=== PATIENT | male | born 1960 ===

== ENCOUNTER 2020-05-01 06:35 | Day surgery (SDC) | payer OTHER ==
[~2020-05-01 06:35] MED LIST: Lactated Ringers 1,000 ML IV SCH
[2020-05-01] MEDS ORDERED: Ondansetron 4 MG/2 ML SDV ONE (07:11)
[2020-05-01] MEDS ORDERED: fentaNYL 100 MCG/2 ML SDV ONE (07:12)
[2020-05-01] MEDS ORDERED: Propofol 200 MG/20 ML SDV ONE (07:12)
[2020-05-01] MEDS ORDERED: Midazolam 1 MG/ML 2 ML SDV ONE (07:12)
--- NOTE | 2020-05-01 07:14 | PCM.PREANE ---
Preanesthetic Assessment - Anesthesia/Transfusion/Family Hx Anesthesia History: No Prior Anesthesia Family History of Anesthesia Reaction: No Transfusion History: No Prior Transfusion(s) Intubation History: Unknown - Review of Systems General: No Symptoms Pulmonary: No Symptoms Cardiovascular: No Symptoms Gastrointestinal: Hematochezia, Other (hemorrhoides, screening colonoscopy) Neurological: No Symptoms Other: Reports: None - Physical Assessment Height: 5 ft 8 in Weight: 84.368 kg ASA Class: 2 Mental Status: Alert & Oriented x3 Airway Class: Mallampati = 1 Dentition: Reports: Broken Tooth/Teeth (x3 on the back) Thyro-Mental Finger Breadths: 3 Mouth Opening Finger Breadths: 3 ROM/Head Extension: Full Lungs: Clear to Auscultation, Normal Respiratory Effort Cardiovascular: Regular Rate, Regular Rhythm - Allergies Allergies/Adverse Reactions: Allergies Allergy/AdvReac Type Severity Reaction Status Date / Time Penicillins Allergy Cannot Verified 04/29/20 08:22 Remember - Blood Blood Available: No - Anesthesia Plan Pre-Op Medication Ordered: None - Acknowledgements Anesthesia Type Planned: MAC Pt an Appropriate Candidate for the Planned Anesthesia: Yes Alternatives and Risks of Anesthesia Discussed w Pt/Guardian: Yes Pt/Guardian Understands and Agrees with Anesthesia Plan: Yes PreAnesthesia Questionnaire HEENT History: Reports: Other (See Below) Other HEENT History: wears glasses Cardiovascular History: Reports: Hypertension Respiratory History: Reports: None Gastrointestinal History: Reports: Other (See Below) Other Gastrointestinal History: Gilbert's syndrome Genitourinary History: Reports: None Musculoskeletal History: Reports: Arthritis, Fracture Other Musculoskeletal History: hx fx hand playing football Neurological History: Reports: Concussion, Migraines (last one more than a year ago) Psychiatric History: Reports: PTSD, Other (See Below) Other Psychiatric History: PTSD "not medically diagnosed" Endocrine/Metabolic History: Reports: None Hematologic History: Reports: None Immunologic History: Reports: None Oncologic (Cancer) History: Reports: None Dermatologic History: Reports: None - Past Surgical History Head Surgeries/Procedures: Reports: None HEENT Surgical History: Reports: None Cardiovascular Surgical History: Reports: None Respiratory Surgical History: Reports: None GI Surgical History: Reports: None Male Surgical History: Reports: None Endocrine Surgical History: Reports: None Neurological Surgical History: Reports: None Musculoskeletal Surgical History: Reports: None Oncologic Surgical History: Reports: None Dermatological Surgical History: Reports: None - SUBSTANCE USE Tobacco Use Within Last Twelve Months: Other (See Below) (quit 9 months ago) Days Per Week of Alcohol Use: 7 Number of Drinks Per Day: 1 Total Drinks Per Week: 7 - HOME MEDS Home Medications: Home Meds Cholecalciferol (Vitamin D3) [Vitamin D3] 3 tab PO DAILY 04/29/20 [History] Krill/Om-3/DHA/EPA/Phospho/Ast [Krill Oil 1,000 mg Softgel] 1 tab PO DAILY 04/29/20 [History] Losartan/Hydrochlorothiazide [Losartan-HCTZ 50-12.5 MG] 1 tab PO DAILY 04/29/20 [History] - CURRENT (IN HOUSE) MEDS Current Meds: Current Medications Lactated Ringer's (Ringers, Lactated) 1,000 mls @ 125 mls/hr IV ASDIRECTED TERESA
--- NOTE | 2020-05-01 08:18 | PCM.OPNOTE ---
- General Post-Op/Procedure Note Date of Surgery/Procedure: 05/01/20 Operative Procedure(s): Colonoscopy Pre Op Diagnosis: Desire for colorectal cancer screening Post-Op Diagnosis: Sigmoid diverticulosis Anesthesia Technique: MAC (ASA II) Primary Surgeon: Chuck Sanchez Condition: Good Free Text/Narrative:: DICTATION [id number] CPT CODE 21388
[2020-05-01] MEDS ORDERED: Lactated Ringers 1,000 ML IV SCH (08:30)
--- NOTE | 2020-05-01 08:44 | PCM.POSTAN ---
POST ANESTHESIA ASSESSMENT - MENTAL STATUS Mental Status: Alert, Oriented - VITAL SIGNS Vital Signs: Last Vital Signs Temp 35.9 C L 05/01/20 07:13 Pulse 51 L 05/01/20 08:30 Resp 11 L 05/01/20 08:30 BP 97/58 L 05/01/20 08:30 Pulse Ox 95 05/01/20 08:30 - RESPIRATORY Respiratory Status: Respiratory Rate WNL, Airway Patent, O2 Saturation Stable - CARDIOVASCULAR CV Status: Pulse Rate WNL, Blood Pressure Stable - GASTROINTESTINAL GI Status: No Symptoms - PAIN Pain Score: 0 - POST OP HYDRATION Hydration Status: Adequate & Stable - OBSERVATIONS Free Text/Narrative:: No anesthesia problems
--- NOTE | 2020-05-01 08:55 | PCM48HPAN ---
Post Anesthesia Note - EVALUATION WITHIN 48HRS OF ANESTHETIC Vital Signs in Normal Range: Yes Patient Participated in Evaluation: Yes Respiratory Function Stable: Yes Airway Patent: Yes Cardiovascular Function Stable: Yes Hydration Status Stable: Yes Pain Control Satisfactory: Yes Nausea and Vomiting Control Satisfactory: Yes Mental Status Recovered: Yes Vital Signs: Last Vital Signs Temp 35.9 C L 05/01/20 07:13 Pulse 51 L 05/01/20 08:30 Resp 11 L 05/01/20 08:30 BP 97/58 L 05/01/20 08:30 Pulse Ox 95 05/01/20 08:30 - COMMENTS/OBSERVATIONS Free Text/Narrative:: No anesthesia problems
--- NOTE | 2020-05-01 14:29 | OR ---
SURGEON: Chuck Sanchez M.D. DATE OF PROCEDURE: 05/01/2020 OPERATION PERFORMED: Colonoscopy. PRIMARY SURGEON: Chuck Sanchez MD ANESTHESIA: MAC. ASA CLASSIFICATION: II. PREOPERATIVE DIAGNOSIS: Desire for colorectal cancer screening. POSTOPERATIVE DIAGNOSIS: Sigmoid diverticulosis. DESCRIPTION OF PROCEDURE: The patient was taken to the endoscopy room and positioned on the endoscopy table in the left lateral decubitus position. Time-out was called for appropriate identification of the patient and procedure. Monitored anesthesia care was provided. The colonoscope was inserted into the rectum and advanced with minimal difficulty to the cecum. The cecum was identified by internal landmarks and external pressure. The colonoscope was retroflexed to visualize the ascending colon from below, then straightened and slowly withdrawn. The cecum, ascending colon, hepatic flexure, transverse colon, splenic flexure, and descending colon showed no tumors, polyps, diverticula, or angiodysplastic changes. The prep was excellent. Good visualization was able to be obtained. Sigmoid colon demonstrated numerous small diverticula. No stricture, spasm, or bleeding was noted. No polyps were encountered in the sigmoid colon. The colonoscope was then withdrawn to the rectum and retroflexed to visualize the anal orifice from above. No tumors or polyps were seen. There were some minor hemorrhoidal changes, but no acute changes or bleeding. The colonoscope was then straightened, the rectum aspirated, and the colonoscope removed. The patient tolerated the procedure well and was taken to recovery room in stable condition. MARAT / KARY /[id number]
== END 2020-05-01 09:10 | disposition home or self-care (01) ==
LOC: MW.SDS 06:35
PROVIDERS: ATTEND Surgery
DX: Z12.11 Encounter for screening for malignant neoplasm of colon (principal); K64.9 Unspecified hemorrhoids; K57.30 Diverticulosis of large intestine without perforation or abscess without bleeding; F43.10 Post-traumatic stress disorder, unspecified; I10 Essential (primary) hypertension; Z79.899 Other long term (current) drug therapy; Z88.0 Allergy status to penicillin; Z86.69 Personal history of other diseases of the nervous system and sense organs; Z72.89 Other problems related to lifestyle; Z72.0 Tobacco use
CPT/HCPCS: 45378; J2250; J2405; J2704; J3010; J7120